=== PATIENT | male | born 1945 | race Caucasian/White ===

== ENCOUNTER 2017-05-30 14:53 | Outpatient (CLI) | payer OTHER ==
[~2017-05-30 14:53] MED LIST: ALBU2.5V7 INH; ALBU8.5H8 INH; AMLO5TAB4 PO; LEVO500T20 PO; PRAV20TA PO; PRED20TA PO; SPIRIVA INH; TRIA1CAP53 PO
== END 2017-05-30 21:21 | disposition home or self-care (01) ==
LOC: SRD 14:53
PROVIDERS: ATTEND Internal Medicine
DX: R05 Cough (principal)
CPT/HCPCS: 71020-TC

== ENCOUNTER 2018-07-07 20:47 | Inpatient (IN) | payer OTHER ==
[~2018-07-07] VITALS: Ht 165.1 cm; Wt 69.4 kg
[2018-07-07 20:47] VITALS: BP_SYST 146
[2018-07-07] MEDS ORDERED: NACL 0.9% 1,000 ML IV ONE (20:53)
[2018-07-07] MEDS ORDERED: LevALBUTEROL HCL 1.25 MG/0.5 ML *CONC.* VIAL.NEB (XOPENEX CONC.) INH ONE ×2 (21:00→22:00)
[2018-07-07] MEDS ORDERED: methylPREDNISolone SOD SUCC/PF 62.5 MG/ML VIAL IVP ONE (21:00)
[2018-07-07] MEDS ORDERED: IPRATROPIUM BROM 0.5 MG/2.5 ML VIAL.NEB (ATROVENT) IH ONE (21:00)
[2018-07-07] MEDS ORDERED: ADENOSINE 6MG/2ML VIAL IVP ONE ×2 (21:15→21:30)
[2018-07-07 21:31] LABS: HEMATOCRIT 49.3 % (36-54); HEMOGLOBIN 16.5 g/dL (14.0-18.0); MEAN CORPUSCULAR HEMOGLOBIN 31 pg (27-31); MEAN CORPUSCULAR HGB CONC 34 % (32-36); MEAN CORPUSCULAR VOLUME 92 fL (79.0-98.0); PLATELET COUNT (AUTO) 304 K/uL (130-430); RED BLOOD CELL COUNT(AUTO) 5.36 MIL/uL (4.2-6.2); RED CELL DISTRIBUTION WIDTH 12.9 % (9.0-15.0); WHITE BLOOD COUNT (AUTO) 14.3 K/uL (4.8-10.8)
[2018-07-07] MEDS ORDERED: ADENOSINE 6MG/2ML VIAL ONE (21:35)
[2018-07-07 21:44] LABS: ANION GAP 10 (5-15); CALCIUM 8.2 mg/dL (8.4-11.0); CHLORIDE 95 mmol/L (98-107); CREATININE 0.96 mg/dL (0.55-1.30); GLUCOSE 131 mg/dL (70-99); POTASSIUM 3.6 mmol/L (3.5-5.1); SODIUM SERUM 128 mmol/L (136-145); UREA NITROGEN, BLOOD 14 mg/dL (8-21)
[2018-07-07 21:49] LABS: ALANINE AMINOTRANSFERASE 36 U/L (12-78); ALBUMIN 3.6 g/dL (3.4-4.8); ASPARTATE AMINOTRANSFERASE 19 U/L (10-37); TOTAL BILIRUBIN 0.4 mg/dL (0.0-1.0)
[2018-07-07] MEDS ORDERED: PROMETHAZINE 6.25 MG/ CODEINE 10 MG/ 5 ML PO ONE (22:00)
[2018-07-07 22:07] LABS: BAND % (MANUAL) 8 % (0-6)
[2018-07-07 22:08] LABS: BASOPHILS % (MANUAL) 0 % (0-2); EOSINOPHILS % (MANUAL) 1 % (0-7); LYMPHOCYTES % (MANUAL) 3 % (20-46); MONOCYTES % (MANUAL) 6 % (0-11)
[2018-07-07] MEDS ORDERED: PROMETHAZINE 6.25 MG/ CODEINE 10 MG/ 5 ML ONE (22:22)
[2018-07-07] MEDS ORDERED: BUDE6.9H INH (23:06)
[2018-07-07] MEDS ORDERED: PRAV20TA PO (23:06)
[2018-07-07] MEDS ORDERED: VITD2000 PO (23:06)
[2018-07-07] MEDS ORDERED: TAMS-11 PO (23:06)
[2018-07-07] MEDS ORDERED: IPRA0.2S53 IH (23:06)
[2018-07-08 00:31] LABS: BILIRUBIN,URINE NEGATIVE (NEGATIVE); BLOOD, URINE NEGATIVE (NEGATIVE); CLARITY/URINE CLEAR (CLEAR); COLOR,URINE YELLOW (YELLOW); GLUCOSE,URINE NEGATIVE (NEGATIVE); KETONES,URINE 1+ (NEGATIVE); LEUKOCYTE ESTERASE ,URINE NEGATIVE (NEGATIVE); NITRITE, URINE NEGATIVE (NEGATIVE); PROTEIN URINE NEGATIVE (NEGATIVE); UROBILINOGEN,URINE 0.2 (0.2-1.0)
[2018-07-08] MEDS ORDERED: ACETAMINOPHEN 325 MG TABLET PO PRN (00:45)
[2018-07-08 01:42] VITALS: BP_SYST 121
[2018-07-08 01:51] VITALS: BP_SYST 126
[2018-07-08] MEDS: IPRATROPIUM/ALBUTEROL SULFATE 3 ML AMPUL.NEB (DUONEB) INH SCH ×5 (02:01→23:36)
[2018-07-08] MEDS ORDERED: methylPREDNISolone SOD SUCC 40 MG/ML VIAL IVP SCH (06:00)
[2018-07-08 08:07] VITALS: BP_SYST 124
[2018-07-08] MEDS: LEVOFLOXACIN 500 MG/D5W 100 ML IV SCH (08:08)
[2018-07-08] MEDS ORDERED: IPRATROPIUM BROM 0.5 MG/2.5 ML VIAL.NEB (ATROVENT) INH PRN (10:30)
[2018-07-08] MEDS ORDERED: ALBUTEROL SULFATE 0.083% 2.5 MG/3 ML VIAL.NEB INH PRN (10:30)
[2018-07-08] MEDS: PROMETHAZINE-DM 6.25 MG-15 MG/5 ML UDC PO PRN (12:02)
[2018-07-08 12:41] VITALS: BP_SYST 153
[2018-07-08] MEDS ORDERED: IPRATROPIUM/ALBUTEROL SULFATE 3 ML AMPUL.NEB (DUONEB) INH SCH (13:00)
[2018-07-08] MEDS: methylPREDNISolone SOD SUCC 40 MG/ML VIAL IVP SCH ×2 (15:08→22:56)
[2018-07-08 20:40] VITALS: BP_SYST 111
[2018-07-09 01:02] VITALS: BP_SYST 119
[2018-07-09] MEDS: IPRATROPIUM/ALBUTEROL SULFATE 3 ML AMPUL.NEB (DUONEB) INH SCH ×6 (03:58→23:09)
[2018-07-09] MEDS: methylPREDNISolone SOD SUCC 40 MG/ML VIAL IVP SCH ×3 (06:17→23:12)
[2018-07-09 06:38] LABS: HEMATOCRIT 41.4 % (36-54); HEMOGLOBIN 13.9 g/dL (14.0-18.0); LYMPHOCYTES # (AUTO) 0.8 K/uL (1.0-5.5); LYMPHOCYTES % (AUTO) 6.1 % (20.5-51.5); MEAN CORPUSCULAR HEMOGLOBIN 31 pg (27-31); MEAN CORPUSCULAR HGB CONC 34 % (32-36); MEAN CORPUSCULAR VOLUME 92 fL (79.0-98.0); MONOCYTES # (AUTO) 0.6 K/uL (0.0-1.0); MONOCYTES % (AUTO) 4.5 % (1.7-9.3); NEUTROPHILS # (AUTO) 12.1 K/uL (1.8-7.7); NEUTROPHILS % (AUTO) 89.4 % (40.0-70.0); PLATELET COUNT (AUTO) 272 K/uL (130-430); RED BLOOD CELL COUNT(AUTO) 4.48 MIL/uL (4.2-6.2); RED CELL DISTRIBUTION WIDTH 12.6 % (9.0-15.0); WHITE BLOOD COUNT (AUTO) 13.5 K/uL (4.8-10.8)
[2018-07-09 06:41] LABS: ANION GAP 7 (5-15); CALCIUM 8.3 mg/dL (8.4-11.0); CHLORIDE 99 mmol/L (98-107); CREATININE 0.92 mg/dL (0.55-1.30); GLUCOSE 153 mg/dL (70-99); POTASSIUM 4.1 mmol/L (3.5-5.1); SODIUM SERUM 130 mmol/L (136-145); UREA NITROGEN, BLOOD 16 mg/dL (8-21)
[2018-07-09 07:18] VITALS: BP_SYST 132
[2018-07-09] MEDS: PROMETHAZINE-DM 6.25 MG-15 MG/5 ML UDC PO PRN (08:30)
[2018-07-09] MEDS: LEVOFLOXACIN 500 MG/D5W 100 ML IV SCH (08:40)
[2018-07-09 12:07] VITALS: BP_SYST 126
[2018-07-09] MEDS ORDERED: PANTOPRAZOLE SODIUM 40 MG TAB PO ONE (14:15)
[2018-07-09] MEDS: MAG-AL HYDROX/SIMETH 30 ML UDC PO PRN ×2 (14:25→21:01)
[2018-07-09 16:48] VITALS: BP_SYST 151
[2018-07-09] MEDS: BUDESONIDE 0.5 MG/2 ML AMPUL.NEB INH SCH (19:27)
[2018-07-09 20:55] VITALS: BP_SYST 148
[2018-07-10 00:15] VITALS: BP_SYST 155
[2018-07-10] MEDS: IPRATROPIUM/ALBUTEROL SULFATE 3 ML AMPUL.NEB (DUONEB) INH SCH ×5 (03:44→23:33)
[2018-07-10] MEDS: methylPREDNISolone SOD SUCC 40 MG/ML VIAL IVP SCH ×3 (06:19→22:51)
[2018-07-10] MEDS: BUDESONIDE 0.5 MG/2 ML AMPUL.NEB INH SCH ×2 (07:41→20:05)
[2018-07-10 07:43] VITALS: BP_SYST 118
[2018-07-10] MEDS: PANTOPRAZOLE SODIUM 40 MG TAB PO SCH (08:20)
[2018-07-10] MEDS: LEVOFLOXACIN 500 MG/D5W 100 ML IV SCH (08:20)
[2018-07-10 10:26] LABS: ANION GAP 8 (5-15); CALCIUM 8.3 mg/dL (8.4-11.0); CHLORIDE 99 mmol/L (98-107); CREATININE 1.03 mg/dL (0.55-1.30); GLUCOSE 161 mg/dL (70-99); POTASSIUM 4.7 mmol/L (3.5-5.1); SODIUM SERUM 132 mmol/L (136-145); UREA NITROGEN, BLOOD 25 mg/dL (8-21)
[2018-07-10 10:30] LABS: HEMOGLOBIN 14.4 g/dL (14.0-18.0); LYMPHOCYTES # (AUTO) 0.6 K/uL (1.0-5.5)
[2018-07-10 10:32] LABS: ALANINE AMINOTRANSFERASE 24 U/L (12-78); ALBUMIN 2.8 g/dL (3.4-4.8); ASPARTATE AMINOTRANSFERASE 23 U/L (10-37); TOTAL BILIRUBIN 0.3 mg/dL (0.0-1.0)
[2018-07-10 10:35] LABS: EOSINOPHILS % (AUTO) 0.1 % (0.0-4.0); HEMATOCRIT 43.8 % (36-54); LYMPHOCYTES % (AUTO) 3.7 % (20.5-51.5); MEAN CORPUSCULAR HEMOGLOBIN 30 pg (27-31); MEAN CORPUSCULAR HGB CONC 33 % (32-36); MEAN CORPUSCULAR VOLUME 92 fL (79.0-98.0); MONOCYTES # (AUTO) 0.5 K/uL (0.0-1.0); MONOCYTES % (AUTO) 2.8 % (1.7-9.3); NEUTROPHILS # (AUTO) 15.1 K/uL (1.8-7.7); NEUTROPHILS % (AUTO) 93.4 % (40.0-70.0); PLATELET COUNT (AUTO) 293 K/uL (130-430); RED BLOOD CELL COUNT(AUTO) 4.76 MIL/uL (4.2-6.2); RED CELL DISTRIBUTION WIDTH 12.8 % (9.0-15.0)
[2018-07-10 10:38] LABS: WHITE BLOOD COUNT (AUTO) 16.2 K/uL (4.8-10.8)
[2018-07-10 12:20] VITALS: BP_SYST 129
[2018-07-10 16:01] VITALS: BP_SYST 127
[2018-07-10] MEDS: PROMETHAZINE-DM 6.25 MG-15 MG/5 ML UDC PO PRN (16:54)
[2018-07-10 19:25] VITALS: BP_SYST 111
[2018-07-11 01:25] VITALS: BP_SYST 133
[2018-07-11] MEDS: IPRATROPIUM/ALBUTEROL SULFATE 3 ML AMPUL.NEB (DUONEB) INH SCH ×5 (03:45→19:44)
[2018-07-11] MEDS: methylPREDNISolone SOD SUCC 40 MG/ML VIAL IVP SCH ×3 (06:13→22:06)
[2018-07-11] MEDS: BUDESONIDE 0.5 MG/2 ML AMPUL.NEB INH SCH ×2 (07:30→19:44)
[2018-07-11 08:15] VITALS: BP_SYST 119
[2018-07-11] MEDS: PANTOPRAZOLE SODIUM 40 MG TAB PO SCH (08:37)
[2018-07-11] MEDS: LEVOFLOXACIN 500 MG/D5W 100 ML IV SCH (08:37)
[2018-07-11] MEDS: PROMETHAZINE-DM 6.25 MG-15 MG/5 ML UDC PO PRN (11:06)
[2018-07-11 12:02] VITALS: BP_SYST 138
[2018-07-11 16:02] VITALS: BP_SYST 147
[2018-07-11 20:00] VITALS: BP_SYST 140
[2018-07-12 01:14] VITALS: BP_SYST 154
[2018-07-12] MEDS: IPRATROPIUM/ALBUTEROL SULFATE 3 ML AMPUL.NEB (DUONEB) INH SCH ×5 (03:52→15:56)
[2018-07-12] MEDS: methylPREDNISolone SOD SUCC 40 MG/ML VIAL IVP SCH ×2 (06:01→14:24)
[2018-07-12] MEDS: BUDESONIDE 0.5 MG/2 ML AMPUL.NEB INH SCH (08:06)
[2018-07-12 08:40] VITALS: BP_SYST 142
[2018-07-12] MEDS: PANTOPRAZOLE SODIUM 40 MG TAB PO SCH (08:43)
[2018-07-12] MEDS: LEVOFLOXACIN 500 MG/D5W 100 ML IV SCH (08:43)
[2018-07-12 11:12] VITALS: BP_SYST 139
[2018-07-12 11:29] VITALS: BP_SYST 139
[2018-07-12] MEDS ORDERED: PRED20TA PO (14:13)
[2018-07-12] MEDS ORDERED: AMOX-426 PO (14:13)
[2018-07-12] MEDS ORDERED: FUROSEMIDE 20 MG/2 ML VIAL IVP ONE (14:15)
[2018-07-12 15:40] VITALS: BP_SYST 138
[2018-07-12 16:17] VITALS: BP_SYST 138
== END 2018-07-12 16:50 | disposition home or self-care (01) | DRG 191 ==
LOC: SED 20:47 → STU 07-08 00:40 → SMU 07-11 08:45
PROVIDERS: ADMIT Internal Medicine Hospice and Palliative Medicine; ATTEND Internal Medicine Hospice and Palliative Medicine
DX: J44.1 Chronic obstructive pulmonary disease with (acute) exacerbation (principal); E87.1 Hypo-osmolality and hyponatremia; I47.1 Supraventricular tachycardia; R65.10 Systemic inflammatory response syndrome (SIRS) of non-infectious origin without acute organ dysfunction; I10 Essential (primary) hypertension; E78.5 Hyperlipidemia, unspecified; Z85.828 Personal history of other malignant neoplasm of skin; Z87.891 Personal history of nicotine dependence
CPT/HCPCS: 36415; 36600; 71045; 80048; 80053; 81003; 82803-TC; 83605; 83880; 84484; 85007; 85025; 85027; 87040-TC; 93005; 93306; 94640; 94760; 96374; 96375; 99285; G0378; J0153; J1030; J1940; J1956; J2930; J7612; J7613; J7620; J7626

== ENCOUNTER 2022-04-24 13:14 | Inpatient (IN) | payer OTHER ==
[~2022-04-24] VITALS: Ht 167.6 cm; Wt 68.6 kg
[~2022-04-24 13:14] MED LIST changes: +AMOX-426 PO; +BUDE6.9H INH; +IPRA0.2S53 IH; -LEVO500T20 PO; -SPIRIVA INH; +TAMS-11 PO; +VITD2000 PO
[2022-04-24 13:31] VITALS: BP_SYST 106
--- NOTE | 2022-04-24 14:00 | NUR ---
COVID AND INFLUENZA SPECIMENS COLLECTED AND SENT TO LAB.
[2022-04-24] MEDS ORDERED: predniSONE 20 MG TABLET PO ONE (14:30)
[2022-04-24] MEDS ORDERED: ALBUTEROL SULFATE 0.083% 2.5 MG/3 ML VIAL.NEB INH ONE (14:30)
[2022-04-24] MEDS ORDERED: cefTRIAXone 1 GM in D5W 50 ML IV ONE (14:30)
--- NOTE | 2022-04-24 15:10 | NUR ---
DR. BRAN AT BEDSIDE TO ASSESS PT.
--- NOTE | 2022-04-24 15:25 | NUR ---
PT BROUGHT TO BED 2, PLACED ON MONITOR. PT ON N/C AT 2LPM O2 SAT 94%, RR 24. LUNG SOUNDS DIMINISHED BILATERAL BASES, PT AND WET NONPRODUCTIVE COUGH. PT SINUS TACH HR 117. PT DENIES N/V/D/C. STATES C/P WHEN COUGING 10/11. SIDERAILS UP X2.
--- NOTE | 2022-04-24 15:35 | NUR ---
# 20 gauge angiocath placed to LFA. Use of asceptic technique. Opsite placed over site. Blood return noted. Flushed with 10 cc of normal saline. No evidence of infiltration noted. Patient tolerated well.
[2022-04-24 15:38] LABS: BASOPHILS # (AUTO) 0.1 K/uL (0.0-0.2); BASOPHILS % (AUTO) 0.4 % (0.0-2.0); EOSINOPHILS # (AUTO) 0.2 K/uL (0.0-0.4); EOSINOPHILS % (AUTO) 1.3 % (0.0-4.0); HEMATOCRIT 39.2 % (36-54); HEMOGLOBIN 13.7 g/dL (14.0-18.0); LYMPHOCYTES # (AUTO) 1.4 K/uL (1.0-5.5); LYMPHOCYTES % (AUTO) 10.3 % (20.5-51.5); MEAN CORPUSCULAR HEMOGLOBIN 33 pg (27-31); MEAN CORPUSCULAR HGB CONC 35 % (32-36); MEAN CORPUSCULAR VOLUME 94 fL (79.0-98.0); MONOCYTES # (AUTO) 1.3 K/uL (0.0-1.0); MONOCYTES % (AUTO) 9.7 % (1.7-9.3); NEUTROPHILS # (AUTO) 10.5 K/uL (1.8-7.7); NEUTROPHILS % (AUTO) 78.3 % (40.0-70.0); PLATELET COUNT (AUTO) 348 K/uL (130-430); RED BLOOD CELL COUNT(AUTO) 4.18 MIL/uL (4.2-6.2); RED CELL DISTRIBUTION WIDTH 13.8 % (9.0-15.0); WHITE BLOOD COUNT (AUTO) 13.4 K/uL (4.8-10.8)
--- NOTE | 2022-04-24 15:40 | NUR ---
LABS DRAWN, EKG COMPLETED.
[2022-04-24 15:46] LABS: ANION GAP 7 (5-15); CALCIUM 8.8 mg/dL (8.4-11.0); CHLORIDE 97 mmol/L (98-107); CREATININE 0.91 mg/dL (0.55-1.30); GLUCOSE 107 mg/dL (70-99); UREA NITROGEN, BLOOD 13 mg/dL (8-21)
[2022-04-24 15:49] LABS: ALANINE AMINOTRANSFERASE 21 U/L (12-78); ALBUMIN 2.8 g/dL (3.4-4.8); ASPARTATE AMINOTRANSFERASE 19 U/L (10-37); TOTAL BILIRUBIN 1.1 mg/dL (0.0-1.0)
--- NOTE | 2022-04-24 15:55 | NUR ---
DR. BRAN AT BEDSIDE TO DISCUSS POC.
[2022-04-24] MEDS ORDERED: PIPERACILLIN/TAZO 3.375 GM in NS 50 ML IV ONE (16:00)
[2022-04-24] MEDS ORDERED: MORPHINE 4 MG INJ. 4 MG/ML VIAL IVP ONE (16:00)
[2022-04-24] MEDS ORDERED: PIPERACILLIN/TAZOBACTAM 3.375 GM/VIAL (ZOSYN) IV ONE (16:06)
[2022-04-24] MEDS ORDERED: cefTRIAXone 1 GM VIAL ONE (16:06)
--- NOTE | 2022-04-24 16:35 | NUR ---
DR. BRAN MADE AWARE PT HAS BLE EDEMA. NNOS
[2022-04-24 16:46] LABS: BILIRUBIN,URINE NEGATIVE (NEGATIVE); BLOOD, URINE NEGATIVE (NEGATIVE); CLARITY/URINE CLEAR (CLEAR); COLOR,URINE YELLOW (YELLOW); GLUCOSE,URINE NEGATIVE (NEGATIVE); KETONES,URINE 2+ (NEGATIVE); LEUKOCYTE ESTERASE ,URINE NEGATIVE (NEGATIVE); NITRITE, URINE NEGATIVE (NEGATIVE); PROTEIN URINE TRACE (NEGATIVE)
[2022-04-24] MEDS ORDERED: NACL 0.9% 1,000 ML IV ONE (17:15)
--- NOTE | 2022-04-24 17:32 | NUR ---
MED REC AND BELONGINGS COMPLETED.
--- NOTE | 2022-04-24 17:32 | NUR ---
MAP 63, ONE LITER NS IV BOLUS INITITATED.
[2022-04-24] MEDS ORDERED: LIP40 PO (17:35)
[2022-04-24] MEDS ORDERED: AMLO2.5T2 PO (17:35)
[2022-04-24] MEDS ORDERED: VALS80TA2 PO (17:35)
[2022-04-24] MEDS ORDERED: ASPI-1393 PO (17:35)
[2022-04-24] MEDS ORDERED: CARV6.2554 PO (17:35)
[2022-04-24] MEDS ORDERED: FURO-149 PO (17:35)
[2022-04-24] MEDS ORDERED: LEVO25TA7 PO (17:35)
--- NOTE | 2022-04-24 17:36 | NUR ---
Medication reconciliation completed with information provided by PT'S MEDICATION BOTTLES. Any prior medication reconciliation on file was reviewed and corrected.
--- NOTE | 2022-04-24 17:53 | NUR ---
Admit bed requested Patient will be admitted to care of . Admitted to TELE unit. Diagnosis SOB Inpatient (Yes or No) YES Observation (Yes or No) NO Orientation concerns or request close to nursing station (Yes or No) NO Covid Status NEGATIVE On vent or bipap NO Isolation requirements NO Needs a sitter NO From Home (Yes or if No enter name of facility) HOME Requires Dialysis (Yes or No) NO Med Rec Completed (Yes of No) YES
--- NOTE | 2022-04-24 19:38 | NUR ---
ENDORSED ALL CARE TO SANJUANA WHITNEY. ALL QUESTIONS AND CONCERNS ADDRESSED.
[2022-04-24] MEDS: METHYLPREDNISOLONE SOD SUCC 40 MG/ML VIAL IVP SCH (21:24)
--- NOTE | 2022-04-24 22:49 | NUR ---
PT RESTING. VSS. NO ACUTE DISTRESS NOTED. AT BEDSIDE.
--- NOTE | 2022-04-25 00:50 | NUR ---
PROVIDED PATIENT WITH WATER. PT RESTING. VSS. AT BEDSIDE
[2022-04-25] MEDS ORDERED: ALBUTEROL SULFATE 0.083% 2.5 MG/3 ML VIAL.NEB INH ONE ×2 (01:00→21:22)
[2022-04-25] MEDS: ALBUTEROL SULFATE 0.083% 2.5 MG/3 ML VIAL.NEB INH SCH ×7 (01:00→23:08)
[2022-04-25 01:07] VITALS: BP_SYST 109
--- NOTE | 2022-04-25 01:15 | NUR ---
RT AT BEDSIDE
--- NOTE | 2022-04-25 03:05 | NUR ---
Patient resting quietly. No acute distress noted. Vital signs within normal range.
--- NOTE | 2022-04-25 04:23 | NUR ---
RT AT BEDSIDE
--- NOTE | 2022-04-25 06:26 | NUR ---
Patient resting quietly. No acute distress noted. Vital signs within normal range.
--- NOTE | 2022-04-25 07:30 | NUR ---
RECEIVED REPORT FROM EDGARDO WEI. PT IN STABLE CONDITION. PT RECEIVING BREATHING TX Q4 HR. VSS
--- NOTE | 2022-04-25 10:50 | NUR ---
Admission Note Received patient from ER with diagnosis of COPD EXACERBATION, SOB. Initial Plan of Care discussed-patient verbalized his understanding. Oriented to room, call light, pain management and safety.
--- NOTE | 2022-04-25 10:54 | NUR ---
Patient will be admitted to care of DR KENT. Admitted to TELE unit. Will go to room 106A. Belongings list completed. Complete and up to date summary report printed. SBAR report to be given at bedside with opportunity for questions.
--- NOTE | 2022-04-25 10:56 | NUR ---
CONSULTATION PAGED REASON FOR CONSULTATIONSOB WAS CONSULT CALED?Y PERSON WHO WAS NOTIFIEDDYKLAN : CONSULTING PHYSICIAN:RUSSEL HENRY (MICHAEL CURIEL TRAFFIC ROUTING ENGINEER) SAFETY INVESTIGATOR/CAUSE ANALYST SPECIALTY:PULMONARY SAFETY INVESTIGATOR/CAUSE ANALYST PHONE NUMBER:[phone] REQUESTING PHYSICIAN:YULISA STERN
[2022-04-25 11:15] VITALS: BP_SYST 123
[2022-04-25] MEDS: METHYLPREDNISOLONE SOD SUCC 40 MG/ML VIAL IVP SCH ×2 (13:53→23:30)
--- NOTE | 2022-04-25 15:56 | NUR ---
SHORT OF BREATH Earlier pt had a coughing episode and then felt short of breath, Rt called and gave breathing treatment. Pt stated he feels better now.
[2022-04-25 17:20] VITALS: BP_SYST 127
--- NOTE | 2022-04-25 19:23 | NUR ---
CLOSING NOTE Pt sitting up in bed visiting with his girlfriend. No s/s resp distress, no c/o pain or discomfort. Endorsed care to pin machine tender nurse. Needs met, call light within reach.
[2022-04-25] MEDS: BUDESONIDE 0.5 MG/2 ML AMPUL.NEB INH SCH (21:33)
--- NOTE | 2022-04-25 22:10 | NUR ---
CALLED DR. KENT AND INFORMED HIM THAT PATIENT ASKED FOR PRN BREATHING TX. BREATHING PRN TX ORDER RECEIVED. ORDER MADE, NOTED, AND CARRIED OUT. PATIENT MADE AWARE.
[2022-04-25] MEDS ORDERED: BUDESONIDE 0.5 MG/2 ML AMPUL.NEB INH PRN (22:45)
[2022-04-26 00:38] VITALS: BP_SYST 123
[2022-04-26] MEDS: ALBUTEROL SULFATE 0.083% 2.5 MG/3 ML VIAL.NEB INH SCH ×5 (03:17→21:16)
[2022-04-26 06:55] LABS: BASOPHILS % (AUTO) 0.1 % (0.0-2.0); HEMATOCRIT 35.9 % (36-54); HEMOGLOBIN 12.3 g/dL (14.0-18.0); LYMPHOCYTES # (AUTO) 0.9 K/uL (1.0-5.5); LYMPHOCYTES % (AUTO) 6.6 % (20.5-51.5); MEAN CORPUSCULAR HEMOGLOBIN 32 pg (27-31); MEAN CORPUSCULAR HGB CONC 34 % (32-36); MEAN CORPUSCULAR VOLUME 94 fL (79.0-98.0); MONOCYTES # (AUTO) 0.5 K/uL (0.0-1.0); MONOCYTES % (AUTO) 3.7 % (1.7-9.3); NEUTROPHILS # (AUTO) 12.3 K/uL (1.8-7.7); NEUTROPHILS % (AUTO) 89.6 % (40.0-70.0); PLATELET COUNT (AUTO) 380 K/uL (130-430); RED BLOOD CELL COUNT(AUTO) 3.82 MIL/uL (4.2-6.2); RED CELL DISTRIBUTION WIDTH 13.6 % (9.0-15.0); WHITE BLOOD COUNT (AUTO) 13.7 K/uL (4.8-10.8)
[2022-04-26 07:05] LABS: ALBUMIN 2.3 g/dL (3.4-4.8); ANION GAP 7 (5-15); ASPARTATE AMINOTRANSFERASE 25 U/L (10-37); CALCIUM 8.6 mg/dL (8.4-11.0); CHLORIDE 96 mmol/L (98-107); CREATININE 0.75 mg/dL (0.55-1.30); GLUCOSE 172 mg/dL (70-99); TOTAL BILIRUBIN 0.5 mg/dL (0.0-1.0); UREA NITROGEN, BLOOD 13 mg/dL (8-21)
[2022-04-26] MEDS: METHYLPREDNISOLONE SOD SUCC 40 MG/ML VIAL IVP SCH ×3 (07:10→21:48)
[2022-04-26] MEDS: BUDESONIDE 0.5 MG/2 ML AMPUL.NEB INH SCH ×2 (07:16→21:16)
[2022-04-26 07:28] LABS: ALANINE AMINOTRANSFERASE 24 U/L (12-78)
[2022-04-26 08:00] VITALS: BP_SYST 127
--- NOTE | 2022-04-26 08:00 | NUR ---
AM NOTES CONTINUE ON O2 AT 2L/NC, ON HHN TREATMENT. REFUSED TO CHANGE HIS CLOTHES TO HOSPITAL GOWN, NOTED WITH BILATERAL LOWER LEG AND FOOT EDEMA. STATED HE IS ABLE TO WALK AND GO TO THE BATHROOM WHEN NEEDED. TOOK BREAKFAST TOLERATED WELL.
[2022-04-26] MEDS ORDERED: FUROSEMIDE 20 MG/2 ML VIAL IVP ONE (09:30)
--- NOTE | 2022-04-26 11:00 | NUR ---
NOTES SEEN BY DR DANG, ORDERED TO START LASIX FOR EDEMA ON LOWER LEGS.
[2022-04-26 12:00] VITALS: BP_SYST 125
--- NOTE | 2022-04-26 15:00 | NUR ---
NOTES ON HHN TREATMENT, C/O OF SOB. O2 SAT 90'S %.
[2022-04-26 16:03] VITALS: BP_SYST 126
[2022-04-26] MEDS: ACETAMINOPHEN 500 MG TABLET PO PRN (16:32)
[2022-04-26] MEDS ORDERED: TAMSULOSIN HCL 0.4 MG CAP PO ONE (16:45)
--- NOTE | 2022-04-26 18:00 | NUR ---
NOTES SITTED AT THE SIDE OF BED, AT BEDSIDE. ON HHN TREATMENT.
[2022-04-26 20:00] VITALS: BP_SYST 106
--- NOTE | 2022-04-26 20:00 | NUR ---
Opening notes Pt AAOx3, sitting at the edge of the bed, no s/s distress. VSS, afebrile. O2 sat 98% on 2L via NC. Pt asks for HHN treatment. Call light within reach. Bed low, locked, siderails up x2. To monitor.
[2022-04-26] MEDS: FUROSEMIDE 20 MG/2 ML VIAL IVP SCH (20:27)
[2022-04-26] MEDS: ENOXAPARIN SODIUM 40 MG/0.4 ML SYRINGE SUBCUT SCH (20:28)
[2022-04-26] MEDS: ALBUTEROL SULFATE 0.083% 2.5 MG/3 ML VIAL.NEB INH PRN (21:55)
[2022-04-27] VITALS: BP_SYST 118
[2022-04-27] MEDS: ALBUTEROL SULFATE 0.083% 2.5 MG/3 ML VIAL.NEB INH SCH ×7 (01:24→23:31)
--- NOTE | 2022-04-27 01:30 | NUR ---
Moved to Room 107-A. All belongings with pt.
[2022-04-27] MEDS: METHYLPREDNISOLONE SOD SUCC 40 MG/ML VIAL IVP SCH ×3 (06:03→21:39)
--- NOTE | 2022-04-27 06:05 | NUR ---
Closing notes Pt AAOx3, sitting at the edge of the bed, no s/s distress. Pt just received a HHN treatment. Call light within reach. Bed low, locked, siderails up x2. To endorse to AM nurse.
[2022-04-27] MEDS: BUDESONIDE 0.5 MG/2 ML AMPUL.NEB INH SCH ×2 (07:20→19:24)
[2022-04-27 08:00] VITALS: BP_SYST 129
[2022-04-27] MEDS ORDERED: FUROSEMIDE 20 MG/2 ML VIAL IVP SCH (09:00)
[2022-04-27] MEDS ORDERED: TAMSULOSIN HCL 0.4 MG CAP PO SCH ×2 (09:00→09:10)
[2022-04-27] MEDS: FUROSEMIDE 20 MG/2 ML VIAL IVP SCH ×2 (09:17→21:40)
[2022-04-27 12:00] VITALS: BP_SYST 127
[2022-04-27 16:00] VITALS: BP_SYST 135
[2022-04-27] MEDS: guaiFENesin/DEXTROMETHORPHAN 10 ML UDC PO PRN (17:50)
[2022-04-27] MEDS: TAMSULOSIN HCL 0.4 MG CAP PO SCH (17:50)
--- NOTE | 2022-04-27 18:30 | NUR ---
Mr Rodrigez has been assessed as indicated. He continues to deny pain. He voids via urinal. he is requesting a walker to ambulate around the unit. He states that he has a walker at home but does not use it to move about this home. he is requesting to use one while he is here in hospital to ambulate in the halls. he has been visited by his S/O Jayde. He has requested and been provided with cough syrup for a moist productive cough. He is sitting at the bed side completing hid dinner he has been encouraged to elevate his feet as much as possible.
--- NOTE | 2022-04-27 19:15 | NUR ---
Handoff has been given to Darian
[2022-04-27 20:00] VITALS: BP_SYST 135
[2022-04-27] MEDS: ENOXAPARIN SODIUM 40 MG/0.4 ML SYRINGE SUBCUT SCH (21:38)
[2022-04-28] MEDS: ALBUTEROL SULFATE 0.083% 2.5 MG/3 ML VIAL.NEB INH SCH ×5 (02:55→21:41)
[2022-04-28] MEDS: guaiFENesin/DEXTROMETHORPHAN 10 ML UDC PO PRN ×2 (05:15→21:16)
[2022-04-28] MEDS: ACETAMINOPHEN 500 MG TABLET PO PRN (05:15)
--- NOTE | 2022-04-28 05:39 | NUR ---
PT REPORTS "IV JUST CAME OUT". ATTEMPTED RESTART TO L FA - FAILED.
[2022-04-28 07:21] LABS: BASOPHILS % (AUTO) 0.1 % (0.0-2.0); HEMATOCRIT 34.9 % (36-54); HEMOGLOBIN 12.2 g/dL (14.0-18.0); LYMPHOCYTES # (AUTO) 1.1 K/uL (1.0-5.5); LYMPHOCYTES % (AUTO) 10.9 % (20.5-51.5); MEAN CORPUSCULAR HEMOGLOBIN 32 pg (27-31); MEAN CORPUSCULAR HGB CONC 35 % (32-36); MEAN CORPUSCULAR VOLUME 92 fL (79.0-98.0); MONOCYTES # (AUTO) 0.6 K/uL (0.0-1.0); MONOCYTES % (AUTO) 5.8 % (1.7-9.3); NEUTROPHILS # (AUTO) 8.2 K/uL (1.8-7.7); NEUTROPHILS % (AUTO) 83.2 % (40.0-70.0); PLATELET COUNT (AUTO) 356 K/uL (130-430); RED BLOOD CELL COUNT(AUTO) 3.78 MIL/uL (4.2-6.2); RED CELL DISTRIBUTION WIDTH 13.5 % (9.0-15.0); WHITE BLOOD COUNT (AUTO) 9.9 K/uL (4.8-10.8)
[2022-04-28] MEDS: BUDESONIDE 0.5 MG/2 ML AMPUL.NEB INH SCH ×2 (07:40→21:42)
[2022-04-28 07:44] LABS: ANION GAP 3 (5-15); CALCIUM 8.4 mg/dL (8.4-11.0); CHLORIDE 96 mmol/L (98-107); CREATININE 0.88 mg/dL (0.55-1.30); GLUCOSE 147 mg/dL (70-99); UREA NITROGEN, BLOOD 14 mg/dL (8-21)
[2022-04-28 08:00] VITALS: BP_SYST 156
[2022-04-28 08:22] VITALS: BP_SYST 135
[2022-04-28] MEDS: METHYLPREDNISOLONE SOD SUCC 40 MG/ML VIAL IVP SCH ×2 (10:13→20:19)
[2022-04-28] MEDS: FUROSEMIDE 20 MG/2 ML VIAL IVP SCH ×2 (10:15→20:17)
[2022-04-28 11:35] VITALS: BP_SYST 129
[2022-04-28] MEDS ORDERED: acetaZOLAMIDE 250 MG TABLET (DIAMOX) PO ONE (13:15)
[2022-04-28] MEDS: ALBUTEROL SULFATE 0.083% 2.5 MG/3 ML VIAL.NEB INH PRN ×2 (13:50→21:42)
[2022-04-28 15:26] VITALS: BP_SYST 147
[2022-04-28] MEDS: TAMSULOSIN HCL 0.4 MG CAP PO SCH (18:12)
--- NOTE | 2022-04-28 19:30 | NUR ---
Handoff has been given to janet
[2022-04-28 20:00] VITALS: BP_SYST 140
[2022-04-28] MEDS: ENOXAPARIN SODIUM 40 MG/0.4 ML SYRINGE SUBCUT SCH (20:17)
[2022-04-29] VITALS: BP_SYST 138
[2022-04-29] MEDS: ALBUTEROL SULFATE 0.083% 2.5 MG/3 ML VIAL.NEB INH SCH ×5 (05:38→15:07)
--- NOTE | 2022-04-29 05:44 | NUR ---
Patient in bed. No acute distress noted. Patient requested cough medication. Prn given. Will continue to monitor.
[2022-04-29 06:26] LABS: BASOPHILS % (AUTO) 0.1 % (0.0-2.0); HEMATOCRIT 37.9 % (36-54); HEMOGLOBIN 13.2 g/dL (14.0-18.0); LYMPHOCYTES % (AUTO) 9.4 % (20.5-51.5); MEAN CORPUSCULAR HEMOGLOBIN 32 pg (27-31); MEAN CORPUSCULAR HGB CONC 35 % (32-36); MEAN CORPUSCULAR VOLUME 93 fL (79.0-98.0); MONOCYTES # (AUTO) 0.6 K/uL (0.0-1.0); MONOCYTES % (AUTO) 5.9 % (1.7-9.3); NEUTROPHILS % (AUTO) 84.6 % (40.0-70.0); PLATELET COUNT (AUTO) 408 K/uL (130-430); RED BLOOD CELL COUNT(AUTO) 4.08 MIL/uL (4.2-6.2); RED CELL DISTRIBUTION WIDTH 13.6 % (9.0-15.0); WHITE BLOOD COUNT (AUTO) 10.6 K/uL (4.8-10.8)
[2022-04-29] MEDS: BUDESONIDE 0.5 MG/2 ML AMPUL.NEB INH SCH (07:12)
[2022-04-29 07:17] LABS: ANION GAP 4 (5-15); CHLORIDE 97 mmol/L (98-107); CREATININE 0.82 mg/dL (0.55-1.30); GLUCOSE 151 mg/dL (70-99); THYROID STIMULATING HORMONE 1.14 uIu/mL (0.36-3.74); UREA NITROGEN, BLOOD 14 mg/dL (8-21)
[2022-04-29 08:00] VITALS: BP_SYST 121
[2022-04-29] MEDS ORDERED: predniSONE 20 MG TABLET PO SCH (09:00)
[2022-04-29] MEDS: ALBUTEROL SULFATE 0.083% 2.5 MG/3 ML VIAL.NEB INH PRN (09:40)
[2022-04-29] MEDS: FUROSEMIDE 20 MG/2 ML VIAL IVP SCH (10:31)
[2022-04-29] MEDS ORDERED: LEVO-62 PO (11:45)
[2022-04-29] MEDS ORDERED: PRED20TA PO (11:45)
[2022-04-29 14:52] VITALS: BP_SYST 136
[2022-04-29 15:00] VITALS: BP_SYST 133
[2022-04-29] MEDS ORDERED: FLU VACC QS2022-23(6MOS UP)/PF 0.5 ML/SYR SYRINGE I.M. ONE (15:30)
--- NOTE | 2022-04-29 16:35 | NUR ---
FOLLOW UP APPOINTMENT UNABLE TO MAKE APPOINTMENT FOR PATIENT TO FOLLOW WITH GENERAL INTERNAL MEDICINE PHYSICIAN. PATIENT STATED HE WILL CALL HIMSELF ON SUNDAY
--- NOTE | 2022-04-29 16:45 | NUR ---
pt. discharged home in stable condition.d/c instructions given to pt, accompany home by his .pt a'nd his verbalized understanding.prescription pick-up instructions given to pt as well.all belonging sent home with pt.
== END 2022-04-29 18:18 | disposition home or self-care (01) | DRG 189 ==
LOC: SED 13:14 → STU 17:50 → SMU 04-27 10:37
PROVIDERS: ADMIT Internal Medicine; ATTEND Internal Medicine
PROC: 5A09357 Assistance with Respiratory Ventilation, Less than 24 Consecutive Hours, Continuous Positive Airway Pressure (ICD-10-PCS; principal; 2022-04-24)
DX: J96.01 Acute respiratory failure with hypoxia (principal); J44.1 Chronic obstructive pulmonary disease with (acute) exacerbation; I11.0 Hypertensive heart disease with heart failure; E78.5 Hyperlipidemia, unspecified; F32.A Depression, unspecified; E55.9 Vitamin D deficiency, unspecified; N40.0 Benign prostatic hyperplasia without lower urinary tract symptoms; J40 Bronchitis, not specified as acute or chronic; R53.81 Other malaise; Z20.822 Contact with and (suspected) exposure to COVID-19; I50.9 Heart failure, unspecified
CPT/HCPCS: 36415; 71045; 80048; 80053; 81003; 83605; 83880; 84443; 84484; 85025; 87040; 87086; 93005; 94640; 94660; 94760; 99291; 99292; G0378; J0696; J1030; J1650; J1940; J1956; J2270; J2543; J7030; J7050; J7120; J7512; J7613; J7626

== ENCOUNTER 2023-08-06 15:45 | Inpatient (IN) | payer OTHER ==
[~2023-08-06] VITALS: Ht 167.6 cm; Wt 72.6 kg
[2023-08-06 15:45] VITALS: BP_SYST 156; PULSE 134; RESP 24; TEMP 99.1; O2SAT 96
[~2023-08-06 15:45] MED LIST changes: +AMLO2.5T2 PO; -AMOX-426 PO; +ASPI-1393 PO; +CARV6.2554 PO; +FURO-149 PO; +LEVO-62 PO; +LEVO25TA7 PO; +LIP40 PO; -TRIA1CAP53 PO; +VALS80TA2 PO
[2023-08-06] MEDS: IPRATROPIUM/ALBUTEROL SULFATE 3 ML AMPUL.NEB (DUONEB) INH ONE ×2 (15:58→16:24)
[2023-08-06] MEDS: methylPREDNISolone SOD SUCC/PF 62.5 MG/ML VIAL IVP ONE (16:22)
[2023-08-06 16:37] LABS: ANION GAP 7 (5-15); BASOPHILS % (AUTO) 0.2 % (0.0-2.0); CALCIUM 9.1 mg/dL (8.4-11.0); CARBON DIOXIDE 27 mmol/L (23-29); CHLORIDE 96 mmol/L (98-107); CREATININE 0.95 mg/dL (0.55-1.30); EOSINOPHILS % (AUTO) 0.2 % (0.0-4.0); GLUCOSE 174 mg/dL (74-106); HEMATOCRIT 41.4 % (36-54); HEMOGLOBIN 14.4 g/dL (14.0-18.0); LYMPHOCYTES # (AUTO) 1.3 K/uL (1.0-5.5); LYMPHOCYTES % (AUTO) 10.7 % (20.5-51.5); MEAN CORPUSCULAR HEMOGLOBIN 33 pg (27-31); MEAN CORPUSCULAR HGB CONC 35 % (32-36); MEAN CORPUSCULAR VOLUME 96 fL (79.0-98.0); MONOCYTES # (AUTO) 1.3 K/uL (0.0-1.0); MONOCYTES % (AUTO) 10.9 % (1.7-9.3); NEUTROPHILS # (AUTO) 9.3 K/uL (1.8-7.7); PLATELET COUNT (AUTO) 315 K/uL (130-430); POTASSIUM 4.4 mmol/L (3.5-5.1); RED BLOOD CELL COUNT(AUTO) 4.31 MIL/uL (4.2-6.2); RED CELL DISTRIBUTION WIDTH 13.3 % (9.0-15.0); SODIUM SERUM 130 mmol/L (136-145); UREA NITROGEN, BLOOD 10 mg/dL (8-21)
[2023-08-06 16:44] LABS: ALANINE AMINOTRANSFERASE 24 U/L (12-78); ASPARTATE AMINOTRANSFERASE 18 U/L (10-37); BILIRUBIN,DIRECT 0.2 mg/dL (0.0-0.3); TOTAL BILIRUBIN 0.7 mg/dL (0.0-1.0); TOTAL PROTEIN, SERUM 7.5 g/dL (6.4-8.3)
[2023-08-06 16:45] LABS: ABG O2 SAT% ESTIMATE 96.7 % (94.0-100.0); ALLEN'S TEST POSITIVE (P); BLOOD GAS BASE EXCESS -2.3 mmol/L (-3.0-3.0); BLOOD GAS PCO2 41.7 mmHg (32.0-45.0); BLOOD GAS PO2 91.7 mmHg (75.0-100.0)
[2023-08-06 16:57] LABS: PROTHROMBIN TIME 10.3 SECS (9.5-12.5)
[2023-08-06 17:19] LABS: BILIRUBIN,URINE 1+ (NEGATIVE); BLOOD, URINE TRACE (NEGATIVE); CLARITY/URINE CLEAR (CLEAR); COLOR,URINE YELLOW (YELLOW); GLUCOSE,URINE NEGATIVE (NEGATIVE); KETONES,URINE NEGATIVE (NEGATIVE); LEUKOCYTE ESTERASE ,URINE NEGATIVE (NEGATIVE); NITRITE, URINE NEGATIVE (NEGATIVE); PROTEIN URINE 2+ (NEGATIVE)
[2023-08-06 17:27] LABS: INFLUENZA TYPE A Negative (NEGATIVE); INFLUENZA TYPE B NEGATIVE (NEGATIVE)
[2023-08-06 17:29] LABS: BACTERIA,URINE RARE /HPF (None Seen); RBC,URINE 0-3 /HPF (0-3); WBC,URINE 0-3 /HPF (0-3)
[2023-08-06 19:00] VITALS: PULSE 108
[2023-08-06] MEDS: 0.45% NACL 1,000 ML IV SCH (19:55)
[2023-08-06] MEDS: AZITHROMYCIN 250 MG in NS 250 ML IV SCH (20:26)
[2023-08-06] MEDS: IPRATROPIUM/ALBUTEROL SULFATE 3 ML AMPUL.NEB (DUONEB) INH PRN (21:01)
[2023-08-06 21:02] VITALS: O2SAT 95
[2023-08-06] MEDS: methylPREDNISolone SOD SUCC 500 MG/VIAL (Solu-MEDROL) IVP SCH (21:25)
[2023-08-06 22:20] VITALS: BP_SYST 133; PULSE 104; RESP 20; TEMP 98.8; O2SAT 94
[2023-08-06 22:25] VITALS: BP_SYST 130; PULSE 108; O2SAT 95
[2023-08-06 23:10] VITALS: O2SAT 95
[2023-08-07] VITALS (14 sets, daily range): BP systolic 108–135; PULSE 99–110; RESP 16–20; TEMP 96.6–98.4; O2SAT 95–97
[2023-08-07] MEDS: METHYLPREDNISOLONE SOD SUCC 40 MG/ML VIAL ONE (06:54)
[2023-08-07] MEDS: LEVOTHYROXINE SODIUM 0.025 MG TABLET PO ONE (11:30)
[2023-08-07] MEDS ORDERED: NALOXONE HCL 0.4 MG/ML AMP (NARCAN) IVP PRN ×2 (11:30)
[2023-08-07] MEDS ORDERED: LORazepam 2 MG/ML VIAL IVP PRN (11:30)
[2023-08-07] MEDS ORDERED: ONDANSETRON HCL 4 MG/2 ML VIAL IVP PRN (11:30)
[2023-08-07] MEDS ORDERED: ACETAMINOPHEN 325 MG TABLET PO PRN ×2 (11:30→11:45)
[2023-08-07] MEDS ORDERED: LOSARTAN POTASSIUM 50 MG TABLET (COZAAR) PO SCH (11:30)
[2023-08-07] MEDS ORDERED: HYDROcodone/ACETAMIN 5-325 MG TAB (NORCO/ VICODIN) PO PRN (11:30)
[2023-08-07] MEDS: ATORVASTATIN 20 MG TABLET PO ONE (13:29)
[2023-08-07] MEDS: guaiFENesin/DEXTROMETHORPHAN 10 ML UDC PO PRN (13:29)
[2023-08-07] MEDS: LOSARTAN POTASSIUM 50 MG TABLET (COZAAR) PO ONE (13:29)
[2023-08-07] MEDS: TAMSULOSIN HCL 0.4 MG CAP PO ONE (13:30)
[2023-08-07] MEDS: ASPIRIN 81 MG TABLET(ECOTRIN) PO ONE (13:30)
[2023-08-07] MEDS: FUROSEMIDE 40 MG TABLET PO ONE (13:30)
[2023-08-07] MEDS: CHOLECALCIFEROL (VITAMIN D3) 5,000 UNIT TABLET PO ONE (13:30)
[2023-08-07] MEDS: NORMAL SALINE 5 ML DISP.SYRIN IVF SCH (13:33)
[2023-08-07] MEDS: amLODIPine BESYLATE 5 MG TABLET PO ONE (13:33)
[2023-08-07] MEDS ORDERED: FLUT1BLS3 INH (13:50)
[2023-08-07] MEDS: METHYLPREDNISOLONE SOD SUCC 40 MG/ML VIAL IVP SCH (14:36)
[2023-08-07] MEDS: IPRATROPIUM BROM 0.5 MG/2.5 ML VIAL.NEB (ATROVENT) INH SCH (14:48)
[2023-08-07] MEDS: ALBUTEROL SULFATE 0.083% 2.5 MG/3 ML VIAL.NEB INH SCH (14:48)
[2023-08-07] MEDS: CARVEDILOL 6.25 MG TABLET (COREG) PO SCH (21:25)
[2023-08-08] VITALS (12 sets, daily range): BP systolic 105–125; PULSE 85–96; RESP 18–22; TEMP 97.1–97.5; O2SAT 93–98
[2023-08-08 05:26] LABS: BASOPHILS % (AUTO) 0.1 % (0.0-2.0); HEMATOCRIT 39.8 % (36-54); HEMOGLOBIN 13.7 g/dL (14.0-18.0); LYMPHOCYTES # (AUTO) 1.1 K/uL (1.0-5.5); LYMPHOCYTES % (AUTO) 8.3 % (20.5-51.5); MEAN CORPUSCULAR HEMOGLOBIN 33 pg (27-31); MEAN CORPUSCULAR HGB CONC 35 % (32-36); MEAN CORPUSCULAR VOLUME 97 fL (79.0-98.0); MONOCYTES # (AUTO) 1.1 K/uL (0.0-1.0); MONOCYTES % (AUTO) 7.9 % (1.7-9.3); NEUTROPHILS # (AUTO) 11.2 K/uL (1.8-7.7); NEUTROPHILS % (AUTO) 83.7 % (40.0-70.0); PLATELET COUNT (AUTO) 354 K/uL (130-430); RED BLOOD CELL COUNT(AUTO) 4.12 MIL/uL (4.2-6.2); RED CELL DISTRIBUTION WIDTH 13.4 % (9.0-15.0); WHITE BLOOD COUNT (AUTO) 13.4 K/uL (4.8-10.8)
[2023-08-08 05:52] LABS: ALANINE AMINOTRANSFERASE 26 U/L (12-78); ALBUMIN 2.6 g/dL (3.4-4.8); ANION GAP 9 (5-15); ASPARTATE AMINOTRANSFERASE 21 U/L (10-37); CALCIUM 9.1 mg/dL (8.4-11.0); CARBON DIOXIDE 23 mmol/L (23-29); CHLORIDE 100 mmol/L (98-107); CREATININE 1.03 mg/dL (0.55-1.30); GLUCOSE 141 mg/dL (74-106); POTASSIUM 4.6 mmol/L (3.5-5.1); SODIUM SERUM 132 mmol/L (136-145); TOTAL BILIRUBIN 0.3 mg/dL (0.0-1.0); TOTAL PROTEIN, SERUM 6.8 g/dL (6.4-8.3); UREA NITROGEN, BLOOD 17 mg/dL (8-21)
[2023-08-08] MEDS: LEVOTHYROXINE SODIUM 0.025 MG TABLET PO SCH (08:28)
[2023-08-08] MEDS: amLODIPine BESYLATE 5 MG TABLET PO SCH (08:29)
[2023-08-08] MEDS: ASPIRIN 81 MG TABLET(ECOTRIN) PO SCH (08:29)
[2023-08-08] MEDS: CHOLECALCIFEROL (VITAMIN D3) 5,000 UNIT TABLET PO SCH (08:29)
[2023-08-08] MEDS: TAMSULOSIN HCL 0.4 MG CAP PO SCH (08:30)
[2023-08-08] MEDS: LOSARTAN POTASSIUM 50 MG TABLET (COZAAR) PO SCH (08:30)
[2023-08-08] MEDS: ATORVASTATIN 20 MG TABLET PO SCH (08:30)
[2023-08-08] MEDS: FUROSEMIDE 40 MG TABLET PO SCH (08:31)
[2023-08-08] MEDS: ACETYLCYSTEINE PO ONE (15:00)
[2023-08-08] MEDS: ACETYLCYSTEINE 10% 4 ML VIAL (RT) INH ONE (15:31)
[2023-08-08] MEDS: cefTRIAXone 1 GM in D5W 50 ML IV SCH (16:08)
[2023-08-08] MEDS: ACETYLCYSTEINE 10% 4 ML VIAL (RT) INH SCH (23:08)
[2023-08-09] VITALS (12 sets, daily range): BP systolic 103–122; PULSE 78–92; RESP 16–18; TEMP 97.2–97.6; O2SAT 87–100
[2023-08-10] VITALS (13 sets, daily range): BP systolic 101–131; PULSE 71–106; RESP 18–20; TEMP 96–98.8; O2SAT 94–99
[2023-08-10 04:48] LABS: BASOPHILS % (AUTO) 0.1 % (0.0-2.0); HEMATOCRIT 39.2 % (36-54); HEMOGLOBIN 13.6 g/dL (14.0-18.0); LYMPHOCYTES # (AUTO) 1.1 K/uL (1.0-5.5); LYMPHOCYTES % (AUTO) 9.1 % (20.5-51.5); MEAN CORPUSCULAR HEMOGLOBIN 33 pg (27-31); MEAN CORPUSCULAR HGB CONC 35 % (32-36); MEAN CORPUSCULAR VOLUME 95 fL (79.0-98.0); MONOCYTES # (AUTO) 0.8 K/uL (0.0-1.0); MONOCYTES % (AUTO) 5.9 % (1.7-9.3); NEUTROPHILS # (AUTO) 10.7 K/uL (1.8-7.7); NEUTROPHILS % (AUTO) 84.9 % (40.0-70.0); PLATELET COUNT (AUTO) 387 K/uL (130-430); RED BLOOD CELL COUNT(AUTO) 4.13 MIL/uL (4.2-6.2); WHITE BLOOD COUNT (AUTO) 12.6 K/uL (4.8-10.8)
[2023-08-10 05:00] LABS: ANION GAP 5 (5-15); CALCIUM 8.6 mg/dL (8.4-11.0); CARBON DIOXIDE 31 mmol/L (23-29); CHLORIDE 99 mmol/L (98-107); CREATININE 0.83 mg/dL (0.55-1.30); GLUCOSE 126 mg/dL (74-106); POTASSIUM 4.6 mmol/L (3.5-5.1); SODIUM SERUM 135 mmol/L (136-145); UREA NITROGEN, BLOOD 20 mg/dL (8-21)
[2023-08-11] VITALS (11 sets, daily range): BP systolic 106–139; PULSE 77–85; RESP 20–22; TEMP 97.8–98.3; O2SAT 94–99
[2023-08-11 05:17] LABS: HEMATOCRIT 37.8 % (36-54); LYMPHOCYTES # (AUTO) 1.2 K/uL (1.0-5.5); LYMPHOCYTES % (AUTO) 9.6 % (20.5-51.5); MEAN CORPUSCULAR HEMOGLOBIN 33 pg (27-31); MEAN CORPUSCULAR HGB CONC 34 % (32-36); MEAN CORPUSCULAR VOLUME 94 fL (79.0-98.0); MONOCYTES # (AUTO) 0.7 K/uL (0.0-1.0); MONOCYTES % (AUTO) 5.6 % (1.7-9.3); NEUTROPHILS # (AUTO) 10.6 K/uL (1.8-7.7); NEUTROPHILS % (AUTO) 84.8 % (40.0-70.0); PLATELET COUNT (AUTO) 368 K/uL (130-430); RED BLOOD CELL COUNT(AUTO) 4.01 MIL/uL (4.2-6.2); RED CELL DISTRIBUTION WIDTH 12.8 % (9.0-15.0); WHITE BLOOD COUNT (AUTO) 12.5 K/uL (4.8-10.8)
[2023-08-11 05:41] LABS: ANION GAP 2 (5-15); CALCIUM 8.3 mg/dL (8.4-11.0); CARBON DIOXIDE 31 mmol/L (23-29); CHLORIDE 99 mmol/L (98-107); GLUCOSE 127 mg/dL (74-106); POTASSIUM 4.1 mmol/L (3.5-5.1); SODIUM SERUM 132 mmol/L (136-145)
[2023-08-11 05:42] LABS: CREATININE 0.71 mg/dL (0.55-1.30); UREA NITROGEN, BLOOD 16 mg/dL (8-21)
[2023-08-11] MEDS: ENOXAPARIN SODIUM 40 MG/0.4 ML SYRINGE SUBCUT SCH (09:05)
[2023-08-11] MEDS: HYDROcodone/ACETAMIN 10-325 MG TAB PO PRN (14:49)
[2023-08-11] MEDS: FUROSEMIDE 40 MG/4 ML VIAL IVP SCH (17:54)
[2023-08-11] MEDS: CEFEPIME 2 GM in D5W 100 ML IV SCH (20:36)
[2023-08-12] VITALS (9 sets, daily range): BP systolic 112–121; PULSE 70–85; RESP 17–22; TEMP 97.5–98.9; O2SAT 96–99
[2023-08-12] MEDS ORDERED: AMOX-404 PO (12:25)
[2023-08-12] MEDS ORDERED: PRED20TA PO (12:25)
== END 2023-08-12 15:00 | disposition home or self-care (01) | DRG 193 ==
LOC: SED 15:45 → SMU 18:21
PROVIDERS: ADMIT Specialist; ATTEND Specialist
PROC: 5A09357 Assistance with Respiratory Ventilation, Less than 24 Consecutive Hours, Continuous Positive Airway Pressure (ICD-10-PCS; principal; 2023-08-06)
DX: J18.9 Pneumonia, unspecified organism (principal); J96.01 Acute respiratory failure with hypoxia; E87.1 Hypo-osmolality and hyponatremia; J44.1 Chronic obstructive pulmonary disease with (acute) exacerbation; J44.0 Chronic obstructive pulmonary disease with (acute) lower respiratory infection; R65.10 Systemic inflammatory response syndrome (SIRS) of non-infectious origin without acute organ dysfunction; Z20.822 Contact with and (suspected) exposure to COVID-19; E03.9 Hypothyroidism, unspecified; E78.5 Hyperlipidemia, unspecified; E88.09 Other disorders of plasma-protein metabolism, not elsewhere classified; I10 Essential (primary) hypertension; N40.0 Benign prostatic hyperplasia without lower urinary tract symptoms; Z87.891 Personal history of nicotine dependence; Z99.81 Dependence on supplemental oxygen
CPT/HCPCS: 36415; 36600; 71045; 71260; 76376; 80048; 80053; 80076; 81000; 81001; 81015; 82803; 83605; 83880; 84484; 85025; 85610; 85730; 87040; 87081; 87086; 93005; 94640; 94668; 94760; 99285; J0456; J0692; J0696; J1030; J1650; J1940; J2930; J7050; J7060; J7608; Q9967